=== PATIENT | female | born 1980 | race Caucasian/White ===

== ENCOUNTER 2021-05-06 02:56 | Emergency (ER) | payer BC ==
[~2021-05-06] VITALS: Ht 160 cm; Wt 96.0 kg
[2021-05-06] MEDS ORDERED: ZOFRAN4 MG PO (04:09)
[2021-05-06] MEDS ORDERED: HYDROCODON-ACE1 EA10 PO (04:09)
== END 2021-05-06 04:15 | disposition home or self-care (01) ==
LOC: ED 02:56
DX: N20.0 Calculus of kidney (principal)
CPT/HCPCS: 74176; 80053; 81001; 84703; 85025; 99284-25; A9270

== ENCOUNTER 2022-03-12 22:12 | Emergency (ER) | payer BC ==
[~2022-03-12] VITALS: Ht 160 cm; Wt 95.7 kg
[~2022-03-12 22:12] MED LIST: HYDROCODON-ACE1 EA10 PO; ZOFRAN4 MG PO
[2022-03-13] MEDS ORDERED: K-TAB ER20 MEQ PO (03:05)
[2022-03-13] MEDS ORDERED: ONDANSETRON ODT8 MG PO (03:05)
--- NOTE | 2022-03-14 13:10 | EKG ---
[facility] [address] [facility] [place], [place] [address] Signed Sinus rhythm with 1st degree AV block Nonspecific T wave abnormality Abnormal ECG No previous ECGs available Confirmed by SADI MIRANDA MD ([id number] on 03/14/2022 1:10:47 PM Electronically Signed By: SADI MIRANDA MD 03/14/22 1310 PATIENT NAME: JAMES BHAGAT Electrocardiogram DATE OF : 80 PHYSICIAN: SADI MIRANDA MD REPORT #: [id number] REPORT IS CONFIDENTIAL AND NOT TO BE RELEASED WITHOUT AUTHORIZATION
== END 2022-03-13 04:00 | disposition home or self-care (01) ==
LOC: ED 22:12
DX: E87.6 Hypokalemia (principal); R55 Syncope and collapse; R11.2 Nausea with vomiting, unspecified; Z86.718 Personal history of other venous thrombosis and embolism; Z87.442 Personal history of urinary calculi
CPT/HCPCS: 36415; 70450; 72125; 80053; 81001; 83690; 84703; 85025; 93005; 93010; 96361; 96365; 96366; 96375; 99284-25; A9270; C9803; J1790; J2405; J3480; J7030; U0003

== ENCOUNTER 2022-05-16 11:07 | Emergency (ER) | payer SELFPAY ==
[~2022-05-16] VITALS: Ht 160 cm; Wt 91.2 kg
[~2022-05-16 11:07] MED LIST changes: +K-TAB ER20 MEQ PO; +ONDANSETRON ODT8 MG PO
[2022-05-16] MEDS ORDERED: ONDANSETRON ODT4 MG PO (18:01)
[2022-05-16] MEDS ORDERED: FLOMAX0.4 MG PO (18:01)
[2022-05-16] MEDS ORDERED: OXYCODONE HCL5 MG PO (18:01)
== END 2022-05-16 18:08 | disposition home or self-care (01) ==
LOC: ED 11:07
DX: N20.0 Calculus of kidney (principal); Z87.442 Personal history of urinary calculi; Z86.718 Personal history of other venous thrombosis and embolism
CPT/HCPCS: 36415; 80053; 81001; 84703; 85025; 87088; 96361; 96374; 96375; 99284-25; J1885; J2405; J7030

== ENCOUNTER 2024-05-05 08:40 | Emergency (ER) | payer SELFPAY ==
[~2024-05-05] VITALS: Ht 160 cm; Wt 88.9 kg
[~2024-05-05 08:40] MED LIST changes: +FLOMAX0.4 MG PO; +ONDANSETRON ODT4 MG PO; +OXYCODONE HCL5 MG PO
[2024-05-05] MEDS ORDERED: SODIUM CHLORIDE 0.9% 1,000 ML IV PRN (09:00)
[2024-05-05] MEDS ORDERED: ondansetron HCL 4 MG/2 ML VIAL IV ONE (09:00)
[2024-05-05] MEDS ORDERED: diazePAM 10 MG/2 ML SYR IV ONE (09:00)
[2024-05-05] MEDS ORDERED: MECLIZINE HCL 25 MG TAB PO ONE (09:00)
[2024-05-05 09:19] LABS: BASOPHILS 0.9 % (0-2); EOSINOPHILS 0.1 % (0-6); HEMATOCRIT 42.8 % (35.0-50.0); HEMOGLOBIN 14.8 g/dL (12.0-18.0); LYMPHOCYTES 17.5 % (24-44); MCH 31.1 (27-36); MCHC 34.6 g/dl (30-36); MCV 89.7 fl (81-99); NEUTROPHILS 77.5 % (39-80); PLATELET COUNT 241 K/uL (140-440); RBC 4.77 M/ul (4.3-5.7); RDW 12.9 (10.5-15.0)
[2024-05-05 09:29] LABS: INR 0.96 (0.80-1.30); PROTIME 12.4 Sec (11.2-14.2)
[2024-05-05 09:31] LABS: PARTIAL THROMBOPLASTIN TIME 39.1 Sec (22.9-41.3)
[2024-05-05 09:37] LABS: ALBUMIN 3.9 g/dL (3.4-5.0); ALBUMIN/GLOBULIN RATIO 1.05 (1.1-2.4); ALKALINE PHOSPHATASE 73 U/L (46-116); ALT (SGPT) 19 U/L (14-59); ANION GAP 13.1 (7-21); AST (SGOT) 7 U/L (15-37); BILIRUBIN, TOTAL 0.7 ng/dL (0.2-1.0); BUN/CREATININE RATIO 7.22 (6.0-28.6); CALCIUM 9.1 mg/dL (8.5-10.1); CARBON DIOXIDE 27 mmol/L (21-32); CHLORIDE 106 mmol/L (98-107); CREATININE, SERUM 0.83 mg/dL (0.55-1.02); GLOMERULAR FILTRATION RATE,EST 90 mL/min (>60); POTASSIUM 4.1 mmol/L (3.5-5.1); PROTEIN, TOTAL 7.6 g/dL (6.4-8.2); UREA NITROGEN 6 mg/dL (7-18)
[2024-05-05 10:43] LABS: AMPHETAMINES, URINE NEGATIVE (NEGATIVE); BARBITURATES, URINE NEGATIVE (NEGATIVE); BENZODIAZEPINE, URINE NEGATIVE (NEGATIVE); BUPRENORPHINE, URINE NEGATIVE (NEGATIVE); CANNABINOID, URINE NEGATIVE (NEGATIVE); COCAINE, URINE NEGATIVE (NEGATIVE); ECSTASY, URINE NEGATIVE (NEGATIVE); FENTANYL, URINE NEGATIVE (NEGATIVE); METHADONE, URINE NEGATIVE (NEGATIVE); OPIATES, URINE NEGATIVE (NEGATIVE); OXYCODONE, URINE NEGATIVE (NEGATIVE); PHENCYCLIDINE, URINE NEGATIVE (NEGATIVE)
[2024-05-05] MEDS ORDERED: KETOROLAC TROMETHAMINE 30 MG/ML VIAL IV ONE (11:15)
[2024-05-05] MEDS ORDERED: MECLIZINE HCL25 MG PO (11:16)
[2024-05-05] MEDS ORDERED: KETOROLAC TROME10 MG PO (11:50)
[2024-05-05 12:04] VITALS: BP 124/76
--- NOTE | 2024-05-06 21:51 | EKG ---
[facility] [address] [facility] [place] [address] Signed Normal sinus rhythm Normal ECG When compared with ECG of 12-MAR-2022 22:09, [place] interval has decreased Nonspecific T wave abnormality no longer evident in Anterolateral leads Confirmed by Ryan Puckett MD () on 05/06/2024 9:50:45 PM Electronically Signed By: RYAN PUCKETT MD 05/06/242150 PATIENT NAME: JAMES BHAGAT Electrocardiogram DATE OF : 80 PHYSICIAN: RYAN PUCKETT MD REPORT #: [id number] REPORT IS CONFIDENTIAL AND NOT TO BE RELEASED WITHOUT AUTHORIZATION
== END 2024-05-05 12:05 | disposition home or self-care (01) ==
LOC: ED 08:40
PROVIDERS: Emergency Medicine
DX: R42 Dizziness and giddiness (principal); R51.9 Headache, unspecified; Z86.718 Personal history of other venous thrombosis and embolism
CPT/HCPCS: 36415; 70450; 70496; 70498; 80053; 80307; 83735; 84484; 84703; 85025; 85610; 85730; 93005; 93010; A9270; G0480; J1885; J2405; J3360; J7030; Q9967

== ENCOUNTER 2025-02-03 06:37 | Emergency (ER) | payer OTHER ==
[~2025-02-03] VITALS: Ht 160 cm; Wt 90.0 kg
[~2025-02-03 06:37] MED LIST changes: +KETOROLAC TROME10 MG PO; +MECLIZINE HCL25 MG PO
[2025-02-03 07:16] VITALS: BP 123/89
== END 2025-02-03 07:20 | disposition home or self-care (01) ==
LOC: ED 06:37
DX: S92.531A Displaced fracture of distal phalanx of right lesser toe(s), initial encounter for closed fracture (principal); W18.09XA Striking against other object with subsequent fall, initial encounter; Z88.0 Allergy status to penicillin; Z79.899 Other long term (current) drug therapy
CPT/HCPCS: 26770; 73140; 99283-25